=== PATIENT | male | born 1990 | race Two or more races ===

== ENCOUNTER 2019-04-26 13:48 | Inpatient (IN) | payer MEDICAID ==
[~2019-04-26] VITALS: Ht 170.2 cm; Wt 149.0 kg
--- NOTE | 2019-04-26 14:16 | NUR ---
PT STATES, "I FEEL LIKE MY LUNGS ARE FULL OF LIQUID, I FEEL LIKE I CAN'T BREATH". PT ANT LUNGS HAVE MINIMAL EXP WHEEZES AND POST IS CLEAR BUT DIMINISHED. PT IS BREATHING NORMALLY AND REPORTS THAT HE USES 2.5 L OF O2 AT HOME ROUND THE CLOCK. PT HAS HX OF DIABETES. PT HAS BEEN ON DIALYSIS SINCE "SEP 2017". HIS DIALYSIS SCHEDULE IS M/W/, BUT HE MISSED HIS THURSDAY /. HIS LAST DIALYSIS WAS ON SUNDAY 04/22. PT HAS A LUE FISTULA.
--- NOTE | 2019-04-26 14:21 | NUR ---
X-RAY DELAYED PER RN
[2019-04-26] MEDS ORDERED: SODIUM CHLORIDE FLUSH 10ML SYR IVF ONE (14:30)
[2019-04-26 14:50] LABS: BASOPHILS # (AUTO) 0.02 x10^3/uL (0-0.1); BASOPHILS % (AUTO) 0 % (0-1); EOSINOPHILS # (AUTO) 0.21 x10^3/uL (0-0.4); EOSINOPHILS % (AUTO) 4 % (1-7); LYMPHOCYTES # (AUTO) 1.53 x10^3/uL (1-3.4); LYMPHOCYTES % (AUTO) 28 % (22-44); MD NO; MEAN CORPUSCULAR HEMOGLOBIN 30.5 pg (27.5-34.5); MEAN CORPUSCULAR HGB CONC 33.1 g/dL (33.2-36.2); MEAN CORPUSCULAR VOLUME 92.1 fL (81-97); MEAN PLATELET VOLUME 12.2 fL (7.4-10.4); MONOCYTES # (AUTO) 0.31 x10^3/uL (0.2-0.8); MONOCYTES % (AUTO) 6 % (2-9); NEUTROPHILS % (AUTO) 63 % (42-75); PLATELET COUNT 113 x10^3/uL (130-400); RED BLOOD COUNT 3.85 x10^6/uL (4.38-5.82); RED CELL DISTRIBUTION WIDTH 14.2 % (9.4-14.8)
[2019-04-26 14:58] LABS: ALBUMIN 3.7 g/dL (3.4-5.0); ANION GAP 12 mmol/L (5-15); CHLORIDE 100 mmol/L (98-107)
[2019-04-26] MEDS ORDERED: MINO2.5T PO (15:22)
[2019-04-26] MEDS ORDERED: CARVEDILOL ×2 (15:24)
[2019-04-26] MEDS ORDERED: CALCIUM CHLORIDE 10%, 10ML SYR IVPush ONE (15:30)
[2019-04-26] MEDS ORDERED: INSULIN REGULAR 100 UNITS/ML, 3ML VIAL IVPush ONE (16:00)
[2019-04-26] MEDS ORDERED: DEXTROSE 50%, 50ML SYRINGE IVPush ONE ×2 (16:00→18:00)
[2019-04-26] MEDS ORDERED: CALCIUM CHLORIDE 10%, 10ML SYR ONE (16:10)
[2019-04-26] MEDS ORDERED: INSULIN SINGLE DOSE, ER SQ-INSULIN ONE (16:11)
--- NOTE | 2019-04-26 16:34 | NUR ---
MEDS GIVEN TO CORRECT HIGH K, PT TOLERATING MEDS. NO ACUTE SIGNS OF DISTRESS.
--- NOTE | 2019-04-26 16:49 | NUR ---
REPORT GIVEN TO JIGNESH. PT IN STABLE CONDITION AND READY FOR TRANSFER. PT VERBALIZED UNDERSTANDING OF THE PLAN OF CARE.
[2019-04-26] MEDS ORDERED: CALC667C PO (17:01)
[2019-04-26] MEDS ORDERED: NICOTINE 14MG/24 HR PATCH.TD24 TD SCH (17:30)
[2019-04-26] MEDS ORDERED: ONDANSETRON 2MG/ML, 2ML IVPush PRN (17:30)
[2019-04-26] MEDS ORDERED: ENOXAPARIN 30 MG/0.3 ML SQ SCH (17:30)
[2019-04-26] MEDS ORDERED: ACETAMINOPHEN 325 MG TABLET PO PRN (17:30)
[2019-04-26] MEDS ORDERED: hydrALAzine 20 MG/ML, 1ML IVPush PRN (17:30)
--- NOTE | 2019-04-26 17:44 | NUR ---
PT BECAME DIAPHORETIC AND STATES, "I DON'T FEEL WELL". I CHECKED SUGAR, IT WAS 31. PT WAS ALERT AND ABLE TO TOLERATE PO INTAKE. PT WAS GIVEN 3 JUICES AND 2 PACKETS OF PEANUT BUTTER. PT WAS ALSO GIVEN AN AMP OF DEXTROSE. PT SYMPTOMS DECREASED AND HE STATED, "I FEEL A LITTLE BETTER NOW. PT BLOOD SUGAR WAS RECHECKED AND WAS 152. PT TRANSPORTED TO HIS ROOM.
--- NOTE | 2019-04-26 17:49 | NUR ---
I CALLED JIGNESH ON TELE AND GAVE HER AN UPDATE REGARDING PT EPISODE OF LOW BLOOD SUGAR. PT TRANSPORTED IN STABLE CONDITON.
[2019-04-26] MEDS ORDERED: AZITHROMYCIN 500 MG in SODIUM CHLORIDE 0.9% 250 ML IV SCH (18:00)
[2019-04-26] MEDS ORDERED: PLEASE ENTER HEIGHT AND WEIGHT MC SCH (18:00)
[2019-04-26] MEDS ORDERED: CARVEDILOL 6.25 MG TABLET PO SCH (18:00)
[2019-04-26] MEDS ORDERED: PLEASE ENTER ALLERGIES MC SCH (18:30)
[2019-04-26 18:31] VITALS: BP 156/91
[2019-04-26] MEDS ORDERED: MINOXIDIL 2.5 MG TABLET PO SCH (21:00)
[2019-04-26] MEDS ORDERED: HEPARIN 5,000 UNITS/ML, 1ML SQ SCH (21:00)
[2019-04-26 23:14] VITALS: BP 150/80
[2019-04-27] VITALS: BP 164/95
[2019-04-27] MEDS ORDERED: CALCIUM ACETATE 667 MG CAPSULE PO SCH (09:00)
== END 2019-04-27 00:27 | disposition left against medical advice (07) | DRG 291 ==
LOC: ED 15:05 → EDIP 15:31 → 4WST 17:48
PROVIDERS: ADMIT Internal Medicine; ATTEND Internal Medicine
PROC: 5A1D70Z Performance of Urinary Filtration, Intermittent, Less than 6 Hours Per Day (ICD-10-PCS; principal; 2019-04-26)
DX: I13.2 Hypertensive heart and chronic kidney disease with heart failure and with stage 5 chronic kidney disease, or end stage renal disease (principal); I50.31 Acute diastolic (congestive) heart failure; J18.1 Lobar pneumonia, unspecified organism; J96.20 Acute and chronic respiratory failure, unspecified whether with hypoxia or hypercapnia; N18.6 End stage renal disease; Z68.43 Body mass index [BMI] 50.0-59.9, adult; D63.1 Anemia in chronic kidney disease; E11.22 Type 2 diabetes mellitus with diabetic chronic kidney disease; E66.01 Morbid (severe) obesity due to excess calories; Z53.21 Procedure and treatment not carried out due to patient leaving prior to being seen by health care provider; E87.5 Hyperkalemia; Z86.39 Personal history of other endocrine, nutritional and metabolic disease; Z87.891 Personal history of nicotine dependence; Z91.19 Patient's noncompliance with other medical treatment and regimen; Z99.2 Dependence on renal dialysis; Z99.81 Dependence on supplemental oxygen; Z79.899 Other long term (current) drug therapy
CPT/HCPCS: 36415; 71045; 80048; 82040; 82962; 83735; 83880; 84100; 85025; 86705; 86706; 87040; 87340; 93005; 96374; 96375; G0378; J0456; J1644; J1815; J7050